=== PATIENT | male | born 1955 | race Caucasian/White ===

== ENCOUNTER 2018-01-08 10:12 | Outpatient (CLI) | payer BC | END 2018-01-08 21:05 | disposition home or self-care (01) | LOC: SLB 10:12 → SRD 21:05 | PROVIDERS: ATTEND Internal Medicine | DX: M47.892 Other spondylosis, cervical region (principal) | CPT/HCPCS: 72050-TC ==

== ENCOUNTER 2018-04-19 17:48 | Emergency (ER) | payer BC ==
[~2018-04-19] VITALS: Ht 170.2 cm; Wt 88.5 kg
[2018-04-19 17:58] VITALS: BP_SYST 112
[2018-04-19 18:53] VITALS: BP_SYST 112
[2018-04-20] MEDS ORDERED: METO2.5T6 PO (15:37)
[2018-04-20] MEDS ORDERED: PRO40 PO (15:37)
[2018-04-20] MEDS ORDERED: DEC4 PO (15:37)
[2018-04-20] MEDS ORDERED: [UNRECOGNIZED DRUG - CODE] PO (15:37)
[2018-04-20] MEDS ORDERED: VENL75CA PO (15:37)
[2018-04-20] MEDS ORDERED: ALEN10TA6 PO (15:37)
[2018-04-20] MEDS ORDERED: SPIR25TA6 PO (15:37)
[2018-04-20] MEDS ORDERED: SPIRIVA INH (15:37)
[2018-04-20] MEDS ORDERED: VIS25 PO (15:37)
[2018-04-20] MEDS ORDERED: PRAM1TAB4 PO (15:37)
[2018-04-20] MEDS ORDERED: MOME13HF2 INH (15:37)
[2018-04-20] MEDS ORDERED: APIX5TAB PO (15:37)
[2018-04-20] MEDS ORDERED: DILT240C91 PO (15:37)
[2018-04-20] MEDS ORDERED: AZEL6DRO5 EACH EYE (15:37)
[2018-04-20] MEDS ORDERED: LACT10SO6 PO (15:37)
[2018-04-20] MEDS ORDERED: BUDE0.5A4 IH (15:37)
[2018-04-20] MEDS ORDERED: MONT10TA22 (15:37)
[2018-04-20] MEDS ORDERED: LEVA1.2527 NEB (15:37)
== END 2018-04-19 18:53 | disposition home or self-care (01) ==
LOC: SED 17:48
DX: S01.01XA Laceration without foreign body of scalp, initial encounter (principal); I50.9 Heart failure, unspecified; J45.909 Unspecified asthma, uncomplicated; R03.0 Elevated blood-pressure reading, without diagnosis of hypertension; W18.39XA Other fall on same level, initial encounter; Y93.89 Activity, other specified; Y92.89 Other specified places as the place of occurrence of the external cause; Y99.8 Other external cause status
CPT/HCPCS: 70450-TC; 99284

== ENCOUNTER 2018-04-20 13:48 | Emergency (ER) | payer BC ==
[~2018-04-20] VITALS: Ht 175.3 cm; Wt 87.5 kg
[2018-04-20 13:53] VITALS: BP_SYST 105
[2018-04-20 14:39] LABS: BILIRUBIN,URINE NEGATIVE (NEGATIVE); BLOOD, URINE NEGATIVE (NEGATIVE); CLARITY/URINE CLEAR (CLEAR); COLOR,URINE YELLOW (YELLOW); GLUCOSE,URINE NEGATIVE (NEGATIVE); KETONES,URINE NEGATIVE (NEGATIVE); LEUKOCYTE ESTERASE ,URINE NEGATIVE (NEGATIVE); NITRITE, URINE NEGATIVE (NEGATIVE); PROTEIN URINE 1+ (NEGATIVE); UROBILINOGEN,URINE 0.2 (0.2-1.0)
[2018-04-20 14:53] LABS: BARBITURATE, URINE NEGATIVE (NEG <=200); BENZODIAZEPINE, URINE NEGATIVE (NEG <=150); CANNABINOID, URINE NEGATIVE (NEG <=50); COCAINE, URINE NEGATIVE (NEG <=150); METHAMPHETAMINES SCREEN,URINE NEGATIVE (NEG <=500); OPIATE, URINE NEGATIVE (NEG <=100); PHENCYCLIDINE SCREEN,URINE NEGATIVE (NEG <=25); UR TRICYCLIC ANTIDEPRESSANTS NEGATIVE (NEG <=300); URINE AMPHETAMINE NEGATIVE (NEG <=500); URINE METHADONE NEGATIVE (NEG <=200); URINE OXYCODONE SCREEN NEGATIVE (NEG <=100); URINE PROPOXYPHENE SCREEN NEGATIVE (NEG <=300)
[2018-04-20 14:56] LABS: BASOPHILS % (AUTO) 0.1 % (0.0-2.0); HEMATOCRIT 34.4 % (36-54); HEMOGLOBIN 11.8 g/dL (14.0-18.0); LYMPHOCYTES # (AUTO) 0.7 K/uL (1.0-5.5); LYMPHOCYTES % (AUTO) 4.2 % (20.5-51.5); MEAN CORPUSCULAR HEMOGLOBIN 32 pg (27-31); MEAN CORPUSCULAR HGB CONC 34 % (32-36); MEAN CORPUSCULAR VOLUME 95 fL (79.0-98.0); MONOCYTES # (AUTO) 0.9 K/uL (0.0-1.0); MONOCYTES % (AUTO) 6.1 % (1.7-9.3); NEUTROPHILS # (AUTO) 13.9 K/uL (1.8-7.7); NEUTROPHILS % (AUTO) 89.6 % (40.0-70.0); PLATELET COUNT (AUTO) 222 K/uL (130-430); RED BLOOD CELL COUNT(AUTO) 3.63 MIL/uL (4.2-6.2); RED CELL DISTRIBUTION WIDTH 15.8 % (9.0-15.0); WHITE BLOOD COUNT (AUTO) 15.5 K/uL (4.8-10.8)
[2018-04-20 15:13] LABS: ANION GAP 8 (5-15); CALCIUM 8.4 mg/dL (8.4-11.0); CHLORIDE 92 mmol/L (98-107); CREATININE 1.62 mg/dL (0.55-1.30); GLUCOSE 127 mg/dL (70-99); POTASSIUM 3.5 mmol/L (3.5-5.1); SODIUM SERUM 136 mmol/L (136-145); UREA NITROGEN, BLOOD 25 mg/dL (8-21)
[2018-04-20 15:15] LABS: PROTHROMBIN TIME 10.3 SECS (9.5-12.5)
[2018-04-20 15:16] LABS: GFR AFRICAN AMERICAN 56 mL/min (>90)
[2018-04-20 15:25] LABS: ALANINE AMINOTRANSFERASE 79 U/L (12-78); ALBUMIN 2.9 g/dL (3.4-4.8); ASPARTATE AMINOTRANSFERASE 23 U/L (10-37); FREE T4 (FREE THYROXINE) 0.7 ng/dl (0.8-1.5); TOTAL BILIRUBIN 0.5 mg/dL (0.0-1.0)
[2018-04-20 15:28] LABS: ALCOHOL, BLOOD < 3 mg/dL (<10)
[2018-04-20] MEDS ORDERED: SPIRIVA INH (15:37)
[2018-04-20] MEDS ORDERED: BUDE0.5A4 IH (15:37)
[2018-04-20] MEDS ORDERED: [UNRECOGNIZED DRUG - CODE] PO (15:37)
[2018-04-20] MEDS ORDERED: METO2.5T6 PO (15:37)
[2018-04-20] MEDS ORDERED: PRAM1TAB4 PO (15:37)
[2018-04-20] MEDS ORDERED: MONT10TA22 (15:37)
[2018-04-20] MEDS ORDERED: DEC4 PO (15:37)
[2018-04-20] MEDS ORDERED: SPIR25TA6 PO (15:37)
[2018-04-20] MEDS ORDERED: APIX5TAB PO (15:37)
[2018-04-20] MEDS ORDERED: LEVA1.2527 NEB (15:37)
[2018-04-20] MEDS ORDERED: MOME13HF2 INH (15:37)
[2018-04-20] MEDS ORDERED: PRO40 PO (15:37)
[2018-04-20] MEDS ORDERED: LACT10SO6 PO (15:37)
[2018-04-20] MEDS ORDERED: VIS25 PO (15:37)
[2018-04-20] MEDS ORDERED: AZEL6DRO5 EACH EYE (15:37)
[2018-04-20] MEDS ORDERED: DILT240C91 PO (15:37)
[2018-04-20] MEDS ORDERED: ALEN10TA6 PO (15:37)
[2018-04-20] MEDS ORDERED: VENL75CA PO (15:37)
[2018-04-20 16:00] VITALS: BP_SYST 133
== END 2018-04-20 16:04 | disposition home or self-care (01) ==
LOC: SED 13:48
DX: S70.02XA Contusion of left hip, initial encounter (principal); I50.9 Heart failure, unspecified; N40.0 Benign prostatic hyperplasia without lower urinary tract symptoms; J45.909 Unspecified asthma, uncomplicated; Z79.899 Other long term (current) drug therapy; W19.XXXA Unspecified fall, initial encounter; Y93.89 Activity, other specified; Y92.89 Other specified places as the place of occurrence of the external cause; Y99.8 Other external cause status
CPT/HCPCS: 36415; 71045; 73502; 74018; 80053; 80307; 81003; 82140; 83605; 83880; 84439; 84484; 85025; 85610; 87040; 93005; 99284; G0482

== ENCOUNTER 2020-06-17 19:30 | Emergency (ER) | payer BC ==
[~2020-06-17] VITALS: Ht 170.2 cm; Wt 72.6 kg
[~2020-06-17 19:30] MED LIST: ALEN10TA25 PO; APIX5TAB PO; AZEL6DRO5 EACH EYE; BUDE0.5A4 IH; DEC4 PO; DILT240C91 PO; LACT10SO6 PO; LEVA1.2527 NEB; METO2.5T6 PO; MOME13HF2 INH; MONT10TA22; PRAM1TAB4 PO; PRO40 PO; SPIR25TA6 PO; SPIRIVA INH; VENL75CA PO; VIS25 PO; [UNRECOGNIZED DRUG - CODE] PO
[2020-06-17 19:34] VITALS: BP_SYST 155
[2020-06-17] MEDS ORDERED: DIPH-TET-PERTUS Vaccine 0.5 ML VIAL (ADACEL) I.M. ONE (19:45)
[2020-06-17] MEDS ORDERED: BACITRACIN 1 GM OINT TP ONE (19:45)
[2020-06-17 20:38] LABS: HEMATOCRIT 37.3 % (36-54); HEMOGLOBIN 12.6 g/dL (14.0-18.0); MEAN CORPUSCULAR HEMOGLOBIN 33 pg (27-31); MEAN CORPUSCULAR HGB CONC 34 % (32-36); MEAN CORPUSCULAR VOLUME 99 fL (79.0-98.0); PLATELET COUNT (AUTO) 305 K/uL (130-430); RED BLOOD CELL COUNT(AUTO) 3.79 MIL/uL (4.2-6.2); RED CELL DISTRIBUTION WIDTH 15.7 % (9.0-15.0); WHITE BLOOD COUNT (AUTO) 24.8 K/uL (4.8-10.8)
[2020-06-17 20:51] LABS: CALCIUM 9.4 mg/dL (8.4-11.0); CREATININE 1.37 mg/dL (0.55-1.30); POTASSIUM 5.3 mmol/L (3.5-5.1)
[2020-06-17 20:56] LABS: INR 0.9 (0.80-1.20); PROTHROMBIN TIME 9.5 SECS (9.5-12.5)
[2020-06-17 20:57] LABS: ALBUMIN 3.5 g/dL (3.4-4.8); TOTAL BILIRUBIN 0.3 mg/dL (0.0-1.0)
[2020-06-17 21:55] VITALS: BP_SYST 152
[2020-06-17 22:46] LABS: BAND % (MANUAL) 3 % (0-6); BASOPHILS % (MANUAL) 0 % (0-2); EOSINOPHILS % (MANUAL) 0 % (0-7); LYMPHOCYTES % (MANUAL) 4 % (20-46); MONOCYTES % (MANUAL) 14 % (0-11)
== END 2020-06-17 21:55 | disposition home or self-care (01) ==
LOC: SED 19:30
DX: S01.01XA Laceration without foreign body of scalp, initial encounter (principal); N40.0 Benign prostatic hyperplasia without lower urinary tract symptoms; I50.9 Heart failure, unspecified; J45.909 Unspecified asthma, uncomplicated; Z95.0 Presence of cardiac pacemaker; Z79.899 Other long term (current) drug therapy; Z88.8 Allergy status to other drugs, medicaments and biological substances; W22.8XXA Striking against or struck by other objects, initial encounter; Y93.89 Activity, other specified; Y92.89 Other specified places as the place of occurrence of the external cause; Y99.8 Other external cause status
CPT/HCPCS: 36415; 70450-TC; 71045; 76376; 80053; 83880; 84484; 85007; 85027; 85610-TC; 85730-TC; 90715; 93005; 99285

== ENCOUNTER 2020-06-19 14:04 | Inpatient (IN) | payer BC ==
[~2020-06-19] VITALS: Ht 170.2 cm; Wt 72.6 kg
[2020-06-19 14:13] VITALS: BP_SYST 111
[2020-06-19 14:52] LABS: ANION GAP 8 (5-15); CALCIUM 9.3 mg/dL (8.4-11.0); CHLORIDE 96 mmol/L (98-107); CREATININE 1.63 mg/dL (0.55-1.30); GLUCOSE 164 mg/dL (70-99); SODIUM SERUM 134 mmol/L (136-145); UREA NITROGEN, BLOOD 49 mg/dL (8-21)
[2020-06-19 14:53] LABS: BASOPHILS % (AUTO) 0.2 % (0.0-2.0); C-REACTIVE PROTEIN QUANT < 0.2 mg/dL (0-0.5); EOSINOPHILS % (AUTO) 0.1 % (0.0-4.0); HEMATOCRIT 34.5 % (36-54); HEMOGLOBIN 11.7 g/dL (14.0-18.0); LYMPHOCYTES # (AUTO) 0.4 K/uL (1.0-5.5); LYMPHOCYTES % (AUTO) 2.1 % (20.5-51.5); MEAN CORPUSCULAR HEMOGLOBIN 34 pg (27-31); MEAN CORPUSCULAR HGB CONC 34 % (32-36); MEAN CORPUSCULAR VOLUME 100 fL (79.0-98.0); MONOCYTES # (AUTO) 1.3 K/uL (0.0-1.0); MONOCYTES % (AUTO) 6.9 % (1.7-9.3); NEUTROPHILS # (AUTO) 16.5 K/uL (1.8-7.7); NEUTROPHILS % (AUTO) 90.7 % (40.0-70.0); PLATELET COUNT (AUTO) 274 K/uL (130-430); RED BLOOD CELL COUNT(AUTO) 3.46 MIL/uL (4.2-6.2); RED CELL DISTRIBUTION WIDTH 15.7 % (9.0-15.0); WHITE BLOOD COUNT (AUTO) 18.1 K/uL (4.8-10.8)
[2020-06-19 14:57] LABS: ALANINE AMINOTRANSFERASE 90 U/L (12-78); ALBUMIN 3.2 g/dL (3.4-4.8); ASPARTATE AMINOTRANSFERASE 30 U/L (10-37); TOTAL BILIRUBIN 0.3 mg/dL (0.0-1.0)
[2020-06-19 15:01] LABS: GFR AFRICAN AMERICAN 55 mL/min (>90); POTASSIUM 6.5 mmol/L (3.5-5.1)
[2020-06-19 15:08] LABS: PROTHROMBIN TIME 9.8 SECS (9.5-12.5)
[2020-06-19] MEDS ORDERED: NS 1000 ML IV.SOLN IV ONE (15:15)
[2020-06-19] MEDS ORDERED: SODIUM POLYSTYRENE SULFONATE 15 GM/60 ML UDBTL PO ONE (15:30)
[2020-06-19] MEDS ORDERED: SODIUM BICARBONATE 8.4% JECT 50 MEQ/50 ML SYRINGE IVP ONE (15:30)
[2020-06-19] MEDS ORDERED: DEXTROSE 50% JECT 50 ML DISP.SYRIN IVP ONE (15:30)
[2020-06-19] MEDS ORDERED: INSULIN REGULAR, HUMAN 10 UNITS/0.1 ML INJ IVP ONE (15:30)
[2020-06-19] MEDS ORDERED: cefTRIAXone 1 GM IVPB PREMIX 50 ML IV SCH (15:30)
[2020-06-19] MEDS ORDERED: PIPERACILLIN IV ONE (15:30)
[2020-06-19] MEDS ORDERED: MORPHINE 2 MG/ML INJ. SYRINGE IVP PRN ×2 (15:30)
[2020-06-19] MEDS ORDERED: TAZOBACTAM IV ONE (15:30)
[2020-06-19] MEDS ORDERED: MEROPENEM 1 GM in NS 100 ML IV ONE (15:30)
[2020-06-19] MEDS ORDERED: NS IV ONE (15:30)
[2020-06-19] MEDS ORDERED: MEROPENEM 500 MG VIAL IV ONE (15:39)
[2020-06-19] MEDS ORDERED: DORZ10DR9 EACH EYE (16:46)
[2020-06-19] MEDS ORDERED: LORA10TA7 PO (16:46)
[2020-06-19] MEDS ORDERED: MECO10005 PO (16:46)
[2020-06-19] MEDS ORDERED: FER300L PO (16:46)
[2020-06-19] MEDS ORDERED: COLC0.6T67 PO (16:46)
[2020-06-19] MEDS ORDERED: MAGN400T10 PO (16:46)
[2020-06-19] MEDS ORDERED: DULO60CA41 PO (16:46)
[2020-06-19] MEDS ORDERED: ZINC50TA69 PO (16:46)
[2020-06-19] MEDS ORDERED: OMEG-158 PO (16:46)
[2020-06-19] MEDS ORDERED: ASCO500T20 PO (16:46)
[2020-06-19] MEDS ORDERED: SELE200C PO (16:46)
[2020-06-19] MEDS ORDERED: BREX0.5T PO (16:46)
[2020-06-19 17:20] VITALS: BP_SYST 126
[2020-06-19 20:00] VITALS: BP_SYST 128
[2020-06-19 20:45] VITALS: BP_SYST 126
[2020-06-19] MEDS ORDERED: LEVOFLOXACIN 500 MG/D5W 100 ML IV ONE (20:53)
[2020-06-19] MEDS: LEVOFLOXACIN 500 MG/D5W 100 ML IV SCH (21:34)
[2020-06-20 00:32] VITALS: BP_SYST 105
[2020-06-20 01:18] LABS: CALCIUM 7.9 mg/dL (8.4-11.0); CREATININE 1.22 mg/dL (0.55-1.30); POTASSIUM 4.1 mmol/L (3.5-5.1)
[2020-06-20 01:23] LABS: ALBUMIN 2.5 g/dL (3.4-4.8); PHOSPHORUS 2.9 mg/dL (2.7-4.5); TOTAL BILIRUBIN 0.2 mg/dL (0.0-1.0)
[2020-06-20] MEDS: ACETAMINOPHEN 500 MG TABLET PO PRN ×3 (02:57→21:25)
[2020-06-20 07:36] LABS: BASOPHILS % (AUTO) 0.1 % (0.0-2.0); EOSINOPHILS % (AUTO) 0.3 % (0.0-4.0); LYMPHOCYTES # (AUTO) 0.6 K/uL (1.0-5.5); MEAN CORPUSCULAR HEMOGLOBIN 34 pg (27-31); MEAN CORPUSCULAR HGB CONC 34 % (32-36); MEAN CORPUSCULAR VOLUME 99 fL (79.0-98.0); MONOCYTES # (AUTO) 1.4 K/uL (0.0-1.0); MONOCYTES % (AUTO) 9.8 % (1.7-9.3); NEUTROPHILS # (AUTO) 12.2 K/uL (1.8-7.7); PLATELET COUNT (AUTO) 201 K/uL (130-430); RED BLOOD CELL COUNT(AUTO) 2.92 MIL/uL (4.2-6.2); RED CELL DISTRIBUTION WIDTH 16.6 % (9.0-15.0); WHITE BLOOD COUNT (AUTO) 14.2 K/uL (4.8-10.8)
[2020-06-20 07:42] VITALS: BP_SYST 106
[2020-06-20 08:47] LABS: NEUTROPHILS % (AUTO) 85.8 % (40.0-70.0)
[2020-06-20] MEDS ORDERED: NAPH,MB-DB/K PH,MBDB 250 MG TAB PO SCH (09:00)
[2020-06-20 12:00] VITALS: BP_SYST 97
[2020-06-20] MEDS ORDERED: COLCHICINE 0.6 MG TABLET PO PRN (15:30)
[2020-06-20 16:00] VITALS: BP_SYST 132
[2020-06-20] MEDS ORDERED: DILTIAZEM HCL 240 MG CAP.SR.24H PO ONE (16:00)
[2020-06-20] MEDS ORDERED: CYANOCOBALAMIN 1000 mCg TABLET PO ONE (17:00)
[2020-06-20] MEDS: NACL 0.9% 1,000 ML IV SCH (17:31)
[2020-06-20] MEDS: LEVOFLOXACIN 500 MG/D5W 100 ML IV SCH (17:33)
[2020-06-20] MEDS ORDERED: LevALBUTEROL HCL 1.25 MG/0.5 ML *CONC.* VIAL.NEB (XOPENEX CONC.) INH ONE (17:51)
[2020-06-20] MEDS: IPRATROPIUM BROM 0.5 MG/2.5 ML VIAL.NEB (ATROVENT) INH SCH (19:10)
[2020-06-20 20:05] VITALS: BP_SYST 129
[2020-06-20] MEDS: BUDESONIDE 0.5 MG/2 ML AMPUL.NEB IH SCH (20:33)
[2020-06-20] MEDS: APIXABAN 2.5 MG TABLET PO SCH (21:00)
[2020-06-20] MEDS ORDERED: BREXPIPRAZOLE 0.5 MG PO SCH (21:00)
[2020-06-20] MEDS ORDERED: APIXABAN 2.5 MG TABLET PO SCH (21:00)
[2020-06-20] MEDS ORDERED: TIOTROPIUM BROMIDE 18 mcg/INHALATION (CAPSULE) INH SCH (21:00)
[2020-06-20] MEDS: DORZOLAMIDE 2% OPHTHALMIC SOLN 5ML OP SCH (21:14)
[2020-06-20] MEDS: ASCORBIC ACID 500 MG TABLET PO SCH (21:15)
[2020-06-20] MEDS: OMEGA-3/DHA/EPA/FISH OIL 1 GM CAPSULE PO SCH (21:16)
[2020-06-20] MEDS: DECADRON 4 MG TABLET PO SCH (21:17)
[2020-06-20] MEDS: MAGNESIUM OXIDE 400 MG TABLET PO SCH (21:18)
[2020-06-20] MEDS: LORATADINE 10 MG TABLET PO SCH (21:18)
[2020-06-20] MEDS: DULoxetine HCL 30 MG CAPSULE.DR (CYMBALTA) PO SCH (21:19)
[2020-06-21 00:07] VITALS: BP_SYST 128
[2020-06-21] MEDS: ACETAMINOPHEN 500 MG TABLET PO PRN ×2 (05:36→21:21)
[2020-06-21] MEDS: IPRATROPIUM BROM 0.5 MG/2.5 ML VIAL.NEB (ATROVENT) INH SCH ×3 (07:00→19:45)
[2020-06-21 07:57] LABS: BASOPHILS % (AUTO) 0.2 % (0.0-2.0); HEMATOCRIT 31.5 % (36-54); HEMOGLOBIN 10.8 g/dL (14.0-18.0); LYMPHOCYTES # (AUTO) 0.3 K/uL (1.0-5.5); MEAN CORPUSCULAR HEMOGLOBIN 34 pg (27-31); MEAN CORPUSCULAR HGB CONC 34 % (32-36); MEAN CORPUSCULAR VOLUME 100 fL (79.0-98.0); MONOCYTES # (AUTO) 0.9 K/uL (0.0-1.0); MONOCYTES % (AUTO) 5.7 % (1.7-9.3); NEUTROPHILS # (AUTO) 13.7 K/uL (1.8-7.7); NEUTROPHILS % (AUTO) 92.1 % (40.0-70.0); PLATELET COUNT (AUTO) 193 K/uL (130-430); RED BLOOD CELL COUNT(AUTO) 3.16 MIL/uL (4.2-6.2); RED CELL DISTRIBUTION WIDTH 16.1 % (9.0-15.0); WHITE BLOOD COUNT (AUTO) 14.8 K/uL (4.8-10.8)
[2020-06-21 08:03] VITALS: BP_SYST 141
[2020-06-21] MEDS: VENLAFAXINE HCL 50 MG TABLET PO SCH ×2 (09:00→10:54)
[2020-06-21] MEDS: APIXABAN 2.5 MG TABLET PO SCH ×2 (09:00→21:00)
[2020-06-21] MEDS: PRAMIPEXOLE DI-HCL 1 MG TABLET PO SCH ×2 (09:00→10:54)
[2020-06-21] MEDS ORDERED: SELENIUM PO SCH (09:00)
[2020-06-21] MEDS: BUDESONIDE 0.5 MG/2 ML AMPUL.NEB IH SCH ×2 (09:00→20:44)
[2020-06-21 09:02] LABS: POTASSIUM 3.8 mmol/L (3.5-5.1)
[2020-06-21 09:25] LABS: CALCIUM 8.6 mg/dL (8.4-11.0); CREATININE 0.91 mg/dL (0.55-1.30); PHOSPHORUS 2.8 mg/dL (2.7-4.5)
[2020-06-21] MEDS: DILTIAZEM HCL 240 MG CAP.SR.24H PO SCH (09:35)
[2020-06-21] MEDS: SPIRONOLACTONE 25 MG TABLET (ALDACTONE) PO SCH (09:37)
[2020-06-21] MEDS: CYANOCOBALAMIN 1000 mCg TABLET PO SCH (09:37)
[2020-06-21] MEDS: OMEGA-3/DHA/EPA/FISH OIL 1 GM CAPSULE PO SCH ×2 (09:38→21:19)
[2020-06-21] MEDS: SIMVASTATIN 40 MG TABLET PO SCH (09:38)
[2020-06-21] MEDS: PANTOPRAZOLE SODIUM 40 MG TAB PO SCH (09:38)
[2020-06-21] MEDS: ASCORBIC ACID 500 MG TABLET PO SCH ×2 (09:38→21:19)
[2020-06-21] MEDS: FERROUS SULFATE 300 MG/5 ML UDC PO SCH (09:41)
[2020-06-21] MEDS: DECADRON 4 MG TABLET PO SCH ×2 (10:54→21:26)
[2020-06-21] MEDS: DORZOLAMIDE 2% OPHTHALMIC SOLN 5ML OP SCH ×2 (10:59→21:15)
[2020-06-21 12:08] VITALS: BP_SYST 123
[2020-06-21 16:04] VITALS: BP_SYST 117
[2020-06-21] MEDS: NACL 0.9% 1,000 ML IV SCH (17:58)
[2020-06-21] MEDS: LEVOFLOXACIN 500 MG/D5W 100 ML IV SCH (17:59)
[2020-06-21 20:00] VITALS: BP_SYST 138
[2020-06-21] MEDS: DULoxetine HCL 30 MG CAPSULE.DR (CYMBALTA) PO SCH (21:18)
[2020-06-21] MEDS: MAGNESIUM OXIDE 400 MG TABLET PO SCH (21:19)
[2020-06-21] MEDS: LORATADINE 10 MG TABLET PO SCH (21:26)
[2020-06-22 06:31] LABS: BASOPHILS % (AUTO) 0.3 % (0.0-2.0); HEMATOCRIT 31.9 % (36-54); HEMOGLOBIN 10.9 g/dL (14.0-18.0); LYMPHOCYTES # (AUTO) 0.3 K/uL (1.0-5.5); LYMPHOCYTES % (AUTO) 2.4 % (20.5-51.5); MEAN CORPUSCULAR HEMOGLOBIN 34 pg (27-31); MEAN CORPUSCULAR HGB CONC 34 % (32-36); MEAN CORPUSCULAR VOLUME 99 fL (79.0-98.0); MONOCYTES # (AUTO) 0.5 K/uL (0.0-1.0); MONOCYTES % (AUTO) 4.9 % (1.7-9.3); NEUTROPHILS % (AUTO) 92.4 % (40.0-70.0); PLATELET COUNT (AUTO) 191 K/uL (130-430); RED BLOOD CELL COUNT(AUTO) 3.21 MIL/uL (4.2-6.2); RED CELL DISTRIBUTION WIDTH 16.3 % (9.0-15.0); WHITE BLOOD COUNT (AUTO) 10.8 K/uL (4.8-10.8)
[2020-06-22 07:02] LABS: CALCIUM 8.6 mg/dL (8.4-11.0); CREATININE 1.07 mg/dL (0.55-1.30); POTASSIUM 3.6 mmol/L (3.5-5.1)
[2020-06-22 08:00] VITALS: BP_SYST 140
[2020-06-22 08:53] VITALS: BP_SYST 140
[2020-06-22] MEDS: BUDESONIDE 0.5 MG/2 ML AMPUL.NEB IH SCH (08:53)
[2020-06-22] MEDS: IPRATROPIUM BROM 0.5 MG/2.5 ML VIAL.NEB (ATROVENT) INH SCH (08:53)
[2020-06-22] MEDS: DORZOLAMIDE 2% OPHTHALMIC SOLN 5ML OP SCH ×2 (09:26→21:54)
[2020-06-22] MEDS: DILTIAZEM HCL 240 MG CAP.SR.24H PO SCH (09:28)
[2020-06-22] MEDS: SPIRONOLACTONE 25 MG TABLET (ALDACTONE) PO SCH (09:29)
[2020-06-22] MEDS: DECADRON 4 MG TABLET PO SCH ×2 (09:30→22:02)
[2020-06-22] MEDS: FERROUS SULFATE 300 MG/5 ML UDC PO SCH (09:30)
[2020-06-22] MEDS: CYANOCOBALAMIN 1000 mCg TABLET PO SCH (09:31)
[2020-06-22] MEDS: PANTOPRAZOLE SODIUM 40 MG TAB PO SCH (09:31)
[2020-06-22] MEDS: OMEGA-3/DHA/EPA/FISH OIL 1 GM CAPSULE PO SCH ×2 (09:31→21:51)
[2020-06-22] MEDS: ASCORBIC ACID 500 MG TABLET PO SCH ×2 (09:34→21:51)
[2020-06-22] MEDS: SIMVASTATIN 40 MG TABLET PO SCH (09:34)
[2020-06-22] MEDS: APIXABAN 2.5 MG TABLET PO SCH ×2 (09:38→21:56)
[2020-06-22 12:22] VITALS: BP_SYST 141
[2020-06-22] MEDS: ACETAMINOPHEN 500 MG TABLET PO PRN ×2 (14:50→21:52)
[2020-06-22] MEDS: MEROPENEM 1 GM in NS 100 ML IV SCH ×2 (14:57→21:51)
[2020-06-22] MEDS: VANCOMYCIN HCL 1 GM/NS PREMIX 250 ML IV SCH (14:57)
[2020-06-22] MEDS: NACL 0.9% 1,000 ML IV SCH (14:58)
[2020-06-22 17:05] VITALS: BP_SYST 145
[2020-06-22 20:48] VITALS: BP_SYST 137
[2020-06-22] MEDS: MAGNESIUM OXIDE 400 MG TABLET PO SCH (21:52)
[2020-06-22] MEDS: LORATADINE 10 MG TABLET PO SCH (21:53)
[2020-06-22] MEDS: DULoxetine HCL 30 MG CAPSULE.DR (CYMBALTA) PO SCH (21:53)
[2020-06-22] MEDS: REXULTI 0.5 MG PO SCH (22:24)
[2020-06-22] MEDS: FLONASE NASAL SPRAY SCH (22:25)
[2020-06-22] MEDS: ASTELIN 0.1% SCH (22:25)
[2020-06-22] MEDS: SPIRIVA RESPIMAT INH SCH (22:26)
[2020-06-22] MEDS: DULERA INH SCH (22:26)
[2020-06-23 00:14] VITALS: BP_SYST 136
[2020-06-23] MEDS: VANCOMYCIN HCL 1 GM/NS PREMIX 250 ML IV SCH ×2 (02:22→14:44)
[2020-06-23] MEDS: MEROPENEM 1 GM in NS 100 ML IV SCH ×3 (05:28→21:05)
[2020-06-23 07:15] LABS: BASOPHILS % (AUTO) 0.1 % (0.0-2.0); HEMATOCRIT 31.8 % (36-54); HEMOGLOBIN 10.8 g/dL (14.0-18.0); LYMPHOCYTES # (AUTO) 0.3 K/uL (1.0-5.5); LYMPHOCYTES % (AUTO) 2.8 % (20.5-51.5); MEAN CORPUSCULAR HEMOGLOBIN 34 pg (27-31); MEAN CORPUSCULAR HGB CONC 34 % (32-36); MEAN CORPUSCULAR VOLUME 100 fL (79.0-98.0); MONOCYTES # (AUTO) 0.4 K/uL (0.0-1.0); MONOCYTES % (AUTO) 3.7 % (1.7-9.3); NEUTROPHILS # (AUTO) 9.7 K/uL (1.8-7.7); NEUTROPHILS % (AUTO) 93.4 % (40.0-70.0); PLATELET COUNT (AUTO) 214 K/uL (130-430); RED BLOOD CELL COUNT(AUTO) 3.17 MIL/uL (4.2-6.2); RED CELL DISTRIBUTION WIDTH 16.1 % (9.0-15.0); WHITE BLOOD COUNT (AUTO) 10.4 K/uL (4.8-10.8)
[2020-06-23 07:28] LABS: CALCIUM 8.1 mg/dL (8.4-11.0); CREATININE 0.74 mg/dL (0.55-1.30); POTASSIUM 3.4 mmol/L (3.5-5.1)
[2020-06-23 08:00] VITALS: BP_SYST 127; BP_SYST 154
[2020-06-23] MEDS ORDERED: APIXABAN 2.5 MG TABLET ONE (09:08)
[2020-06-23] MEDS: DULERA INH SCH ×2 (09:22→21:12)
[2020-06-23] MEDS: SPIRIVA RESPIMAT INH SCH ×2 (09:22→21:13)
[2020-06-23] MEDS: DORZOLAMIDE 2% OPHTHALMIC SOLN 5ML OP SCH ×2 (09:23→21:22)
[2020-06-23] MEDS: FLONASE NASAL SPRAY SCH ×2 (09:23→21:22)
[2020-06-23] MEDS: ASTELIN 0.1% SCH ×2 (09:23→21:14)
[2020-06-23] MEDS: SPIRONOLACTONE 25 MG TABLET (ALDACTONE) PO SCH (09:29)
[2020-06-23] MEDS: DILTIAZEM HCL 240 MG CAP.SR.24H PO SCH (09:29)
[2020-06-23] MEDS: VENLAFAXINE HCL 50 MG TABLET PO SCH (09:30)
[2020-06-23] MEDS: DECADRON 4 MG TABLET PO SCH ×2 (09:30→21:20)
[2020-06-23] MEDS: APIXABAN 2.5 MG TABLET PO SCH ×2 (09:32→21:17)
[2020-06-23] MEDS: FERROUS SULFATE 300 MG/5 ML UDC PO SCH (09:32)
[2020-06-23] MEDS: OMEGA-3/DHA/EPA/FISH OIL 1 GM CAPSULE PO SCH ×2 (09:32→21:07)
[2020-06-23] MEDS: PANTOPRAZOLE SODIUM 40 MG TAB PO SCH (09:33)
[2020-06-23] MEDS: CYANOCOBALAMIN 1000 mCg TABLET PO SCH (09:33)
[2020-06-23] MEDS: PRAMIPEXOLE DI-HCL 1 MG TABLET PO SCH (09:33)
[2020-06-23] MEDS: SIMVASTATIN 40 MG TABLET PO SCH (09:34)
[2020-06-23] MEDS: ASCORBIC ACID 500 MG TABLET PO SCH ×2 (09:34→21:08)
[2020-06-23] MEDS ORDERED: LevALBUTEROL HCL 1.25 MG/0.5 ML *CONC.* VIAL.NEB (XOPENEX CONC.) INH ONE (09:48)
[2020-06-23] MEDS: LevALBUTEROL HCL 1.25 MG/0.5 ML *CONC.* VIAL.NEB (XOPENEX CONC.) INH PRN (09:56)
[2020-06-23] MEDS: ACETAMINOPHEN 500 MG TABLET PO PRN ×2 (11:56→21:14)
[2020-06-23 12:00] VITALS: BP_SYST 143
[2020-06-23] MEDS ORDERED: POTASSIUM CHLORIDE 20 MEQ/PKT PACKET PO ONE (14:15)
[2020-06-23 16:37] VITALS: BP_SYST 146
[2020-06-23 21:00] VITALS: BP_SYST 138
[2020-06-23] MEDS: MAGNESIUM OXIDE 400 MG TABLET PO SCH (21:06)
[2020-06-23] MEDS: DULoxetine HCL 30 MG CAPSULE.DR (CYMBALTA) PO SCH (21:07)
[2020-06-23] MEDS: LORATADINE 10 MG TABLET PO SCH (21:07)
[2020-06-23] MEDS: BALSAM PERU/CASTOR OIL 60 GM OINT...G. TP SCH (21:09)
[2020-06-23] MEDS: NACL 0.9% 1,000 ML IV SCH (21:10)
[2020-06-23] MEDS: REXULTI 0.5 MG PO SCH (21:15)
[2020-06-24 00:50] VITALS: BP_SYST 138
[2020-06-24] MEDS: VANCOMYCIN HCL 1 GM/NS PREMIX 250 ML IV SCH ×2 (02:18→14:38)
[2020-06-24] MEDS: NACL 0.9% 1,000 ML IV SCH (02:19)
[2020-06-24] MEDS: MEROPENEM 1 GM in NS 100 ML IV SCH ×3 (05:11→21:48)
[2020-06-24 08:00] LABS: CALCIUM 8.3 mg/dL (8.4-11.0); CREATININE 0.75 mg/dL (0.55-1.30); POTASSIUM 3.6 mmol/L (3.5-5.1)
[2020-06-24] MEDS ORDERED: LevALBUTEROL HCL 1.25 MG/0.5 ML *CONC.* VIAL.NEB (XOPENEX CONC.) INH ONE ×2 (08:00→20:48)
[2020-06-24 08:11] LABS: BASOPHILS % (AUTO) 0.1 % (0.0-2.0); HEMATOCRIT 30.5 % (36-54); HEMOGLOBIN 10.5 g/dL (14.0-18.0); LYMPHOCYTES # (AUTO) 0.3 K/uL (1.0-5.5); LYMPHOCYTES % (AUTO) 3.3 % (20.5-51.5); MEAN CORPUSCULAR HEMOGLOBIN 35 pg (27-31); MEAN CORPUSCULAR HGB CONC 35 % (32-36); MEAN CORPUSCULAR VOLUME 100 fL (79.0-98.0); MONOCYTES # (AUTO) 0.6 K/uL (0.0-1.0); MONOCYTES % (AUTO) 5.8 % (1.7-9.3); NEUTROPHILS # (AUTO) 9.3 K/uL (1.8-7.7); NEUTROPHILS % (AUTO) 90.8 % (40.0-70.0); PLATELET COUNT (AUTO) 225 K/uL (130-430); RED BLOOD CELL COUNT(AUTO) 3.05 MIL/uL (4.2-6.2); RED CELL DISTRIBUTION WIDTH 16.2 % (9.0-15.0); WHITE BLOOD COUNT (AUTO) 10.2 K/uL (4.8-10.8)
[2020-06-24] MEDS: ASCORBIC ACID 500 MG TABLET PO SCH ×2 (08:16→21:47)
[2020-06-24] MEDS: SPIRONOLACTONE 25 MG TABLET (ALDACTONE) PO SCH (08:16)
[2020-06-24] MEDS: FERROUS SULFATE 300 MG/5 ML UDC PO SCH (08:16)
[2020-06-24] MEDS: OMEGA-3/DHA/EPA/FISH OIL 1 GM CAPSULE PO SCH ×2 (08:17→21:55)
[2020-06-24] MEDS: CYANOCOBALAMIN 1000 mCg TABLET PO SCH (08:17)
[2020-06-24] MEDS: PANTOPRAZOLE SODIUM 40 MG TAB PO SCH (08:17)
[2020-06-24] MEDS: PRAMIPEXOLE DI-HCL 1 MG TABLET PO SCH (08:17)
[2020-06-24] MEDS: DECADRON 4 MG TABLET PO SCH ×2 (08:17→21:55)
[2020-06-24] MEDS: APIXABAN 2.5 MG TABLET PO SCH ×2 (08:18→21:51)
[2020-06-24] MEDS: DILTIAZEM HCL 240 MG CAP.SR.24H PO SCH (08:18)
[2020-06-24] MEDS: DULERA INH SCH ×2 (08:19→23:36)
[2020-06-24] MEDS: FLONASE NASAL SPRAY SCH ×2 (08:19→23:38)
[2020-06-24] MEDS: SPIRIVA RESPIMAT INH SCH ×2 (08:19→23:37)
[2020-06-24] MEDS: BALSAM PERU/CASTOR OIL 60 GM OINT...G. TP SCH (08:20)
[2020-06-24] MEDS: DORZOLAMIDE 2% OPHTHALMIC SOLN 5ML OP SCH ×2 (08:20→23:38)
[2020-06-24] MEDS: ASTELIN 0.1% SCH ×2 (08:20→23:37)
[2020-06-24] MEDS: SIMVASTATIN 40 MG TABLET PO SCH (08:26)
[2020-06-24] MEDS: VENLAFAXINE HCL 50 MG TABLET PO SCH ×2 (08:26→08:27)
[2020-06-24] MEDS: LevALBUTEROL HCL 1.25 MG/0.5 ML *CONC.* VIAL.NEB (XOPENEX CONC.) INH PRN (09:39)
[2020-06-24 12:30] VITALS: BP_SYST 148
[2020-06-24 16:50] VITALS: BP_SYST 139
[2020-06-24 19:00] VITALS: BP_SYST 157
[2020-06-24] MEDS: MAGNESIUM OXIDE 400 MG TABLET PO SCH (21:46)
[2020-06-24] MEDS: LORATADINE 10 MG TABLET PO SCH (21:46)
[2020-06-24] MEDS: DULoxetine HCL 30 MG CAPSULE.DR (CYMBALTA) PO SCH (21:47)
[2020-06-24] MEDS: REXULTI 0.5 MG PO SCH (23:39)
[2020-06-25 01:05] VITALS: BP_SYST 139
[2020-06-25] MEDS ORDERED: VANCOMYCIN HCL 750 MG/NS 250 ML IV SCH (05:00)
[2020-06-25] MEDS: MEROPENEM 1 GM in NS 100 ML IV SCH ×3 (05:57→21:35)
[2020-06-25 08:05] LABS: CALCIUM 8.2 mg/dL (8.4-11.0); CREATININE 0.64 mg/dL (0.55-1.30); POTASSIUM 4.2 mmol/L (3.5-5.1)
[2020-06-25 08:13] VITALS: BP_SYST 160
[2020-06-25 08:19] VITALS: BP_SYST 160
[2020-06-25] MEDS: SIMVASTATIN 40 MG TABLET PO SCH (08:29)
[2020-06-25] MEDS: ASCORBIC ACID 500 MG TABLET PO SCH ×2 (08:29→21:36)
[2020-06-25] MEDS: FERROUS SULFATE 300 MG/5 ML UDC PO SCH (08:29)
[2020-06-25] MEDS: OMEGA-3/DHA/EPA/FISH OIL 1 GM CAPSULE PO SCH ×2 (08:30→21:37)
[2020-06-25] MEDS: SPIRONOLACTONE 25 MG TABLET (ALDACTONE) PO SCH (08:31)
[2020-06-25] MEDS: PANTOPRAZOLE SODIUM 40 MG TAB PO SCH (08:32)
[2020-06-25] MEDS: DILTIAZEM HCL 240 MG CAP.SR.24H PO SCH (08:32)
[2020-06-25] MEDS: CYANOCOBALAMIN 1000 mCg TABLET PO SCH (08:33)
[2020-06-25] MEDS: APIXABAN 2.5 MG TABLET PO SCH ×2 (08:33→21:37)
[2020-06-25] MEDS ORDERED: LevALBUTEROL HCL 1.25 MG/0.5 ML *CONC.* VIAL.NEB (XOPENEX CONC.) INH ONE (08:42)
[2020-06-25] MEDS: SPIRIVA RESPIMAT INH SCH ×2 (08:43→21:44)
[2020-06-25] MEDS: DULERA INH SCH ×2 (08:43→21:42)
[2020-06-25] MEDS: FLONASE NASAL SPRAY SCH ×2 (08:44→21:43)
[2020-06-25] MEDS: ASTELIN 0.1% SCH ×2 (08:44→21:45)
[2020-06-25] MEDS: PRAMIPEXOLE DI-HCL 1 MG TABLET PO SCH (08:45)
[2020-06-25] MEDS: VENLAFAXINE HCL 50 MG TABLET PO SCH (08:45)
[2020-06-25] MEDS: DORZOLAMIDE 2% OPHTHALMIC SOLN 5ML OP SCH ×2 (08:45→21:47)
[2020-06-25] MEDS: LevALBUTEROL HCL 1.25 MG/0.5 ML *CONC.* VIAL.NEB (XOPENEX CONC.) INH PRN ×2 (08:46→21:51)
[2020-06-25] MEDS: DECADRON 4 MG TABLET PO SCH ×2 (09:01→21:38)
[2020-06-25] MEDS: BALSAM PERU/CASTOR OIL 60 GM OINT...G. TP SCH (09:01)
[2020-06-25] MEDS: ACETAMINOPHEN 500 MG TABLET PO PRN (10:24)
[2020-06-25 12:08] VITALS: BP_SYST 160
[2020-06-25 16:12] VITALS: BP_SYST 155
[2020-06-25 20:00] VITALS: BP_SYST 154
[2020-06-25] MEDS ORDERED: VANCOMYCIN HCL 750 MG in NS 250 ML IV SCH (20:00)
[2020-06-25] MEDS: DULoxetine HCL 30 MG CAPSULE.DR (CYMBALTA) PO SCH (21:36)
[2020-06-25] MEDS: SULFAMETHOXAZOLE/TRIMETHOPR DS 1 TABLET PO SCH (21:37)
[2020-06-25] MEDS: MAGNESIUM OXIDE 400 MG TABLET PO SCH (21:37)
[2020-06-25] MEDS: LORATADINE 10 MG TABLET PO SCH (21:38)
[2020-06-25] MEDS: REXULTI 0.5 MG PO SCH (21:41)
[2020-06-25] MEDS: NACL 0.9% 1,000 ML IV SCH (21:50)
[2020-06-26 03:16] VITALS: BP_SYST 148
[2020-06-26] MEDS: MEROPENEM 1 GM in NS 100 ML IV SCH ×3 (05:32→22:56)
[2020-06-26 07:51] VITALS: BP_SYST 155
[2020-06-26] MEDS: ASCORBIC ACID 500 MG TABLET PO SCH ×2 (09:09→23:06)
[2020-06-26] MEDS: OMEGA-3/DHA/EPA/FISH OIL 1 GM CAPSULE PO SCH ×2 (09:09→23:06)
[2020-06-26] MEDS: SULFAMETHOXAZOLE/TRIMETHOPR DS 1 TABLET PO SCH ×2 (09:09→23:04)
[2020-06-26] MEDS: FERROUS SULFATE 300 MG/5 ML UDC PO SCH (09:10)
[2020-06-26] MEDS: SIMVASTATIN 40 MG TABLET PO SCH (09:10)
[2020-06-26] MEDS: APIXABAN 2.5 MG TABLET PO SCH ×2 (09:11→21:00)
[2020-06-26] MEDS: PANTOPRAZOLE SODIUM 40 MG TAB PO SCH (09:12)
[2020-06-26] MEDS: DECADRON 4 MG TABLET PO SCH ×2 (09:12→23:18)
[2020-06-26] MEDS: SPIRONOLACTONE 25 MG TABLET (ALDACTONE) PO SCH (09:13)
[2020-06-26] MEDS: BALSAM PERU/CASTOR OIL 60 GM OINT...G. TP SCH (09:15)
[2020-06-26] MEDS: CYANOCOBALAMIN 1000 mCg TABLET PO SCH (09:15)
[2020-06-26] MEDS: SPIRIVA RESPIMAT INH SCH ×2 (09:16→23:09)
[2020-06-26] MEDS: VENLAFAXINE HCL 50 MG TABLET PO SCH (09:16)
[2020-06-26] MEDS: DULERA INH SCH ×2 (09:16→23:09)
[2020-06-26] MEDS: FLONASE NASAL SPRAY SCH ×2 (09:17→23:10)
[2020-06-26] MEDS: ASTELIN 0.1% SCH ×2 (09:17→23:09)
[2020-06-26] MEDS: DORZOLAMIDE 2% OPHTHALMIC SOLN 5ML OP SCH ×2 (09:18→21:00)
[2020-06-26] MEDS: PRAMIPEXOLE DI-HCL 1 MG TABLET PO SCH (09:18)
[2020-06-26] MEDS: DILTIAZEM HCL 240 MG CAP.SR.24H PO SCH (09:26)
[2020-06-26 12:00] VITALS: BP_SYST 130
[2020-06-26] MEDS: NACL 0.9% 1,000 ML IV SCH (15:15)
[2020-06-26 16:41] VITALS: BP_SYST 169
[2020-06-26 18:55] LABS: INR 1.1 (0.80-1.20); PROTHROMBIN TIME 10.9 SECS (9.5-12.5)
[2020-06-26 19:00] VITALS: BP_SYST 159
[2020-06-26 20:00] VITALS: BP_SYST 159
[2020-06-26] MEDS ORDERED: LevALBUTEROL HCL 1.25 MG/0.5 ML *CONC.* VIAL.NEB (XOPENEX CONC.) INH ONE (21:54)
[2020-06-26] MEDS: DULoxetine HCL 30 MG CAPSULE.DR (CYMBALTA) PO SCH (23:05)
[2020-06-26] MEDS: LORATADINE 10 MG TABLET PO SCH (23:05)
[2020-06-26] MEDS: MAGNESIUM OXIDE 400 MG TABLET PO SCH (23:06)
[2020-06-26] MEDS: REXULTI 0.5 MG PO SCH (23:10)
[2020-06-26] MEDS: LevALBUTEROL HCL 1.25 MG/0.5 ML *CONC.* VIAL.NEB (XOPENEX CONC.) INH PRN (23:42)
[2020-06-27 00:05] VITALS: BP_SYST 172
[2020-06-27] MEDS: MEROPENEM 1 GM in NS 100 ML IV SCH ×3 (05:22→21:56)
[2020-06-27 08:00] VITALS: BP_SYST 210
[2020-06-27] MEDS: APIXABAN 2.5 MG TABLET PO SCH ×2 (09:00→21:00)
[2020-06-27] MEDS: OMEGA-3/DHA/EPA/FISH OIL 1 GM CAPSULE PO SCH ×2 (09:00→21:50)
[2020-06-27] MEDS: DULERA INH SCH ×2 (09:00→21:52)
[2020-06-27] MEDS: VENLAFAXINE HCL 50 MG TABLET PO SCH (09:00)
[2020-06-27] MEDS: CYANOCOBALAMIN 1000 mCg TABLET PO SCH (09:01)
[2020-06-27] MEDS: SIMVASTATIN 40 MG TABLET PO SCH (09:01)
[2020-06-27] MEDS: ASCORBIC ACID 500 MG TABLET PO SCH ×2 (09:01→21:50)
[2020-06-27] MEDS: SPIRONOLACTONE 25 MG TABLET (ALDACTONE) PO SCH (09:02)
[2020-06-27] MEDS: DECADRON 4 MG TABLET PO SCH ×2 (09:02→22:08)
[2020-06-27] MEDS: SULFAMETHOXAZOLE/TRIMETHOPR DS 1 TABLET PO SCH ×2 (09:02→21:50)
[2020-06-27] MEDS: PANTOPRAZOLE SODIUM 40 MG TAB PO SCH (09:03)
[2020-06-27] MEDS: FERROUS SULFATE 300 MG/5 ML UDC PO SCH (09:03)
[2020-06-27] MEDS: DILTIAZEM HCL 240 MG CAP.SR.24H PO SCH (09:03)
[2020-06-27] MEDS: BALSAM PERU/CASTOR OIL 60 GM OINT...G. TP SCH (09:04)
[2020-06-27] MEDS: ASTELIN 0.1% SCH ×2 (09:05→21:53)
[2020-06-27] MEDS: SPIRIVA RESPIMAT INH SCH ×2 (09:05→21:53)
[2020-06-27] MEDS: DORZOLAMIDE 2% OPHTHALMIC SOLN 5ML OP SCH ×2 (09:06→21:56)
[2020-06-27] MEDS: FLONASE NASAL SPRAY SCH ×2 (09:06→21:54)
[2020-06-27] MEDS: PRAMIPEXOLE DI-HCL 1 MG TABLET PO SCH (09:23)
[2020-06-27] MEDS: NACL 0.9% 1,000 ML IV SCH (09:25)
[2020-06-27 11:44] LABS: CREATININE, URINE 88.2 mg/dL; MICROALBUMIN/CREAT RATIO, UR 39 High MG/G CRE (0.0-30.0)
[2020-06-27 12:00] VITALS: BP_SYST 198
[2020-06-27] MEDS: cloNIDine HCL 0.1 MG TABLET PO PRN ×2 (12:43→20:21)
[2020-06-27] MEDS ORDERED: hydrALAZINE HCL 25 MG TABLET PO ONE (13:30)
[2020-06-27 16:56] VITALS: BP_SYST 160
[2020-06-27 20:00] VITALS: BP_SYST 182
[2020-06-27] MEDS: DULoxetine HCL 30 MG CAPSULE.DR (CYMBALTA) PO SCH (21:49)
[2020-06-27] MEDS: MAGNESIUM OXIDE 400 MG TABLET PO SCH (21:50)
[2020-06-27] MEDS: LORATADINE 10 MG TABLET PO SCH (21:50)
[2020-06-27] MEDS: REXULTI 0.5 MG PO SCH (21:54)
[2020-06-27] MEDS ORDERED: LevALBUTEROL HCL 1.25 MG/0.5 ML *CONC.* VIAL.NEB (XOPENEX CONC.) INH ONE (22:01)
[2020-06-28] VITALS: BP_SYST 148
[2020-06-28] MEDS: LevALBUTEROL HCL 1.25 MG/0.5 ML *CONC.* VIAL.NEB (XOPENEX CONC.) INH PRN (04:22)
[2020-06-28] MEDS: MEROPENEM 1 GM in NS 100 ML IV SCH ×3 (06:12→21:29)
[2020-06-28 06:33] LABS: BASOPHILS % (AUTO) 0.2 % (0.0-2.0); HEMATOCRIT 28.9 % (36-54); HEMOGLOBIN 9.9 g/dL (14.0-18.0); LYMPHOCYTES # (AUTO) 0.2 K/uL (1.0-5.5); LYMPHOCYTES % (AUTO) 1.6 % (20.5-51.5); MEAN CORPUSCULAR HEMOGLOBIN 34 pg (27-31); MEAN CORPUSCULAR HGB CONC 34 % (32-36); MEAN CORPUSCULAR VOLUME 101 fL (79.0-98.0); MONOCYTES # (AUTO) 0.7 K/uL (0.0-1.0); NEUTROPHILS # (AUTO) 13.4 K/uL (1.8-7.7); NEUTROPHILS % (AUTO) 93.2 % (40.0-70.0); PLATELET COUNT (AUTO) 293 K/uL (130-430); RED BLOOD CELL COUNT(AUTO) 2.87 MIL/uL (4.2-6.2); WHITE BLOOD COUNT (AUTO) 14.3 K/uL (4.8-10.8)
[2020-06-28 07:03] LABS: CALCIUM 8.3 mg/dL (8.4-11.0); CREATININE 0.69 mg/dL (0.55-1.30); POTASSIUM 4.9 mmol/L (3.5-5.1)
[2020-06-28 08:00] VITALS: BP_SYST 164
[2020-06-28] MEDS: APIXABAN 2.5 MG TABLET PO SCH ×2 (09:00→21:00)
[2020-06-28] MEDS: VENLAFAXINE HCL 50 MG TABLET PO SCH (09:00)
[2020-06-28] MEDS: PANTOPRAZOLE SODIUM 40 MG TAB PO SCH (09:08)
[2020-06-28] MEDS: DILTIAZEM HCL 240 MG CAP.SR.24H PO SCH (09:08)
[2020-06-28] MEDS: ASCORBIC ACID 500 MG TABLET PO SCH ×2 (09:08→21:23)
[2020-06-28] MEDS: DECADRON 4 MG TABLET PO SCH ×2 (09:08→21:58)
[2020-06-28] MEDS: SIMVASTATIN 40 MG TABLET PO SCH (09:08)
[2020-06-28] MEDS: FERROUS SULFATE 300 MG/5 ML UDC PO SCH (09:08)
[2020-06-28] MEDS: SPIRONOLACTONE 25 MG TABLET (ALDACTONE) PO SCH (09:09)
[2020-06-28] MEDS: SULFAMETHOXAZOLE/TRIMETHOPR DS 1 TABLET PO SCH ×2 (09:09→21:23)
[2020-06-28] MEDS: OMEGA-3/DHA/EPA/FISH OIL 1 GM CAPSULE PO SCH ×2 (09:09→21:23)
[2020-06-28] MEDS: CYANOCOBALAMIN 1000 mCg TABLET PO SCH (09:09)
[2020-06-28] MEDS: ASTELIN 0.1% SCH ×2 (09:10→21:20)
[2020-06-28] MEDS: SPIRIVA RESPIMAT INH SCH ×2 (09:10→21:17)
[2020-06-28] MEDS: DULERA INH SCH ×2 (09:10→21:17)
[2020-06-28] MEDS: FLONASE NASAL SPRAY SCH ×2 (09:10→21:25)
[2020-06-28] MEDS: BALSAM PERU/CASTOR OIL 60 GM OINT...G. TP SCH (09:11)
[2020-06-28] MEDS: DORZOLAMIDE 2% OPHTHALMIC SOLN 5ML OP SCH ×2 (09:11→21:24)
[2020-06-28] MEDS: PRAMIPEXOLE DI-HCL 1 MG TABLET PO SCH (09:14)
[2020-06-28] MEDS: ACETAMINOPHEN 500 MG TABLET PO PRN (09:25)
[2020-06-28 14:35] VITALS: BP_SYST 187
[2020-06-28] MEDS: cloNIDine HCL 0.1 MG TABLET PO PRN ×2 (14:48→21:59)
[2020-06-28 17:12] VITALS: BP_SYST 169
[2020-06-28 20:00] VITALS: BP_SYST 185
[2020-06-28] MEDS: DULoxetine HCL 30 MG CAPSULE.DR (CYMBALTA) PO SCH (21:21)
[2020-06-28] MEDS: LORATADINE 10 MG TABLET PO SCH (21:22)
[2020-06-28] MEDS: MAGNESIUM OXIDE 400 MG TABLET PO SCH (21:23)
[2020-06-28] MEDS: REXULTI 0.5 MG PO SCH (21:58)
[2020-06-29] VITALS: BP_SYST 149
[2020-06-29 08:06] VITALS: BP_SYST 169
[2020-06-29] MEDS: SULFAMETHOXAZOLE/TRIMETHOPR DS 1 TABLET PO SCH (08:35)
[2020-06-29] MEDS: CYANOCOBALAMIN 1000 mCg TABLET PO SCH (08:35)
[2020-06-29] MEDS: FERROUS SULFATE 300 MG/5 ML UDC PO SCH (08:35)
[2020-06-29] MEDS: PANTOPRAZOLE SODIUM 40 MG TAB PO SCH (08:35)
[2020-06-29] MEDS: OMEGA-3/DHA/EPA/FISH OIL 1 GM CAPSULE PO SCH (08:36)
[2020-06-29] MEDS: ASCORBIC ACID 500 MG TABLET PO SCH (08:36)
[2020-06-29] MEDS: SIMVASTATIN 40 MG TABLET PO SCH (08:36)
[2020-06-29] MEDS: DILTIAZEM HCL 240 MG CAP.SR.24H PO SCH (08:37)
[2020-06-29] MEDS: PRAMIPEXOLE DI-HCL 1 MG TABLET PO SCH (08:38)
[2020-06-29] MEDS: VENLAFAXINE HCL 50 MG TABLET PO SCH (08:39)
[2020-06-29] MEDS: ASTELIN 0.1% SCH (08:43)
[2020-06-29] MEDS: DULERA INH SCH (08:44)
[2020-06-29] MEDS: SPIRIVA RESPIMAT INH SCH (08:45)
[2020-06-29] MEDS: FLONASE NASAL SPRAY SCH (08:46)
[2020-06-29] MEDS: APIXABAN 2.5 MG TABLET PO SCH (08:49)
[2020-06-29] MEDS: DECADRON 4 MG TABLET PO SCH (08:56)
[2020-06-29] MEDS: DORZOLAMIDE 2% OPHTHALMIC SOLN 5ML OP SCH (09:00)
[2020-06-29] MEDS: BALSAM PERU/CASTOR OIL 60 GM OINT...G. TP SCH (12:00)
[2020-06-29] MEDS ORDERED: LevALBUTEROL HCL 1.25 MG/0.5 ML *CONC.* VIAL.NEB (XOPENEX CONC.) INH ONE (12:11)
[2020-06-29] MEDS: LevALBUTEROL HCL 1.25 MG/0.5 ML *CONC.* VIAL.NEB (XOPENEX CONC.) INH PRN (13:00)
[2020-06-29 16:20] VITALS: BP_SYST 174
[2020-06-29] MEDS: cloNIDine HCL 0.1 MG TABLET PO PRN (18:11)
[2020-06-29 19:50] VITALS: BP_SYST 158
== END 2020-06-29 20:30 | disposition home health service (06) | DRG 871 ==
LOC: SED 14:04 → STU 15:20
PROVIDERS: ADMIT Internal Medicine; ATTEND Internal Medicine
DX: A41.9 Sepsis, unspecified organism (principal); E43 Unspecified severe protein-calorie malnutrition; I42.2 Other hypertrophic cardiomyopathy; L03.115 Cellulitis of right lower limb; L03.116 Cellulitis of left lower limb; N17.9 Acute kidney failure, unspecified; E87.5 Hyperkalemia; F41.9 Anxiety disorder, unspecified; G47.33 Obstructive sleep apnea (adult) (pediatric); I50.9 Heart failure, unspecified; K21.9 Gastro-esophageal reflux disease without esophagitis; M81.0 Age-related osteoporosis without current pathological fracture; N40.0 Benign prostatic hyperplasia without lower urinary tract symptoms; J44.9 Chronic obstructive pulmonary disease, unspecified; I77.6 Arteritis, unspecified; T50.0X5A Adverse effect of mineralocorticoids and their antagonists, initial encounter; Z20.822 Contact with and (suspected) exposure to COVID-19; E86.0 Dehydration; E78.5 Hyperlipidemia, unspecified; E66.01 Morbid (severe) obesity due to excess calories; E11.9 Type 2 diabetes mellitus without complications; B96.5 Pseudomonas (aeruginosa) (mallei) (pseudomallei) as the cause of diseases classified elsewhere; Z95.810 Presence of automatic (implantable) cardiac defibrillator; Z81.8 Family history of other mental and behavioral disorders; Z82.49 Family history of ischemic heart disease and other diseases of the circulatory system; Z88.8 Allergy status to other drugs, medicaments and biological substances; Z79.899 Other long term (current) drug therapy
CPT/HCPCS: 36415; 36600; 70450-TC; 71045; 76376; 76770; 80048; 80053; 80202-TC; 82043; 82570; 82803-TC; 83605; 83735-TC; 84100-TC; 85025; 85610-TC; 85730-TC; 86140; 87040-TC; 93005; 93306; 94640; 94660; 94760; 96365; 96375; 97110-GP; 97116-GP; 97530-GP; 99291; G0378; J1815; J1956; J2185; J2270; J3370; J7050; J7612; J7626; J8540